=== PATIENT | female | born 1955 | race Hispanic/Latino ===

== ENCOUNTER 2019-11-12 15:33 | Emergency (ER) | payer SELFPAY ==
[~2019-11-12 15:33] MED LIST: Sodium Chloride 0.9% 1,000 ML BAG ONE; Sodium Chloride 0.9% 100 ML BAG ONE
[2019-11-12 15:54] LABS: #Basophils 0.1 thou/uL (0.0-0.2); #Eosinphils 0.2 thou/uL (0.0-0.7); #Lymphocytes 3.1 thou/uL (1.20-3.40); #Monocytes 0.8 thou/uL (0.11-0.59); #Neutrophils 6.1 thou/uL (1.40-6.50); %Basophils 0.8 % (0.0-1.0); %Eosinophils 2.1 % (0.0-10.0); %Lymphocytes 30.4 % (21.0-51.0); %Monocytes 8.1 % (0.0-10.0); %Neutrophils 58.6 % (42.0-75.0); Hemoglobin 11.9 g/dL (12.0-16.0); Mean Corpuscular HGB CONC 31.1 g/dL (32.0-36.0); Mean Corpuscular Hemoglobin 30.2 pg (27.0-31.0); Mean Corpuscular Volume 97.1 fL (78.0-98.0); Mean Platelet Volume 8.1 fL (7.4-10.4); Platelet Count 303 thou/uL (130-400); RBC Distribution Width 12.3 % (11.5-14.5); Red Blood Cell (RBC) Count 3.95 mill/uL (4.20-5.40); White Blood Cell (WBC) Count 10.3 thou/uL (4.8-10.8)
[2019-11-12 16:13] LABS: ALT (SGPT) 14 U/L (8-55); AST (SGOT) 10 U/L (5-34); Albumin 4.1 g/dL (3.4-4.8); Alkaline Phosphatase 80 U/L (40-110); Anion Gap 19 mmol/L (10-20); BUN (Urea Nitrogen) 27 mg/dL (9.8-20.1); Bilirubin, Total 0.4 mg/dL (0.2-1.2); Calc. Creatinine Clearance 0 mL/min (70-130); Calcium 9.1 mg/dL (7.8-10.44); Carbon Dioxide 24 mmol/L (23-31); Chloride 100 mmol/L (98-107); Estimated GFR-MDRD 42; Globulin 3.7 g/dL (2.4-3.5); Glucose 537 mg/dL (80-115); Potassium 4.5 mmol/L (3.5-5.1); Protein, Total 7.8 g/dL (6.0-8.3); Sodium 138 mmol/L (136-145)
--- NOTE | 2019-11-12 16:42 | CT ---
CT BRAIN WITHOUT CONTRAST: History: Altered mental status. Comparison: None. FINDINGS: There is no acute hemorrhage or infarct. No midline shift of mass effect. Ventricular size and extraa xial CSF spaces are normal. Calvarium is intact. There is chronic white maxillary sinusitis. IMPRESSION: No acute intracranial abnormality. Dr. Cole notified of findings via telephone at 4:34 p.m. It was noted that this was a stroke daiana col at 4:33 p.m. POS: HOME
--- NOTE | 2019-11-12 17:03 | RAD ---
CHEST ONE VIEW: History: Altered mental status. Comparison: None. FINDINGS: Heart size is upper limits of normal. No pulmonary venous congestion. No pneumothorax. No effusion. N o acute osseous abnormality. IMPRESSION: Cardiomegaly and mild pulmonary venous congestion. POS: HOME
[2019-11-12 17:06] LABS: Bilirubin Negative (Negative); Blood, Urine Negative (Negative); Clarity Clear (Clear); Glucose, Urine (Dipstick) 500 mg/dL (Negative); Leukocyte Trace (Negative); Nitrite Negative (Negative); Protein, Urine (Dipstick) Negative (Neg-Trace); Urobilinogen 0.2 mg/dL (Less than 2)
[2019-11-12 17:14] LABS: RBC/HPF 0-3 HPF (0-3)
[2019-11-12 17:15] LABS: Bacteria/HPF Rare-Few HPF (None Seen); Squamous Epithelial 0-3 HPF (0-3)
[2019-11-12] MEDS ORDERED: Insulin Regular 300 UNITS/3 ML VIAL ONE (17:37)
[2019-11-12] MEDS ORDERED: Aspirin Chewable 81 MG TAB ONE (18:51)
[2019-11-12] MEDS ORDERED: Metoprolol Tartrate 50 MG TAB ONE (18:52)
[2019-11-12] MEDS ORDERED: Ondansetron PF 4 MG/2 ML Vial ONE (19:04)
[2019-11-12] MEDS ORDERED: Metoprolol Tartrate 5 MG/5 ML VIAL ONE (20:04)
--- NOTE | 2019-11-12 20:40 | CT ---
CT ANGIOGRAM HEAD WITH CONTRAST CT ANGIOGRAM NECK WITH CONTRAST: History: Altered mental status. Comparison: CT brain same day FINDINGS: CT angiograph of the head and neck performed after the intravenous administration of contrast. 3D andrews dering provided. The lung apices are relatively clear. No cervical adenopathy. Globes are intact. Transverse aorta is unremarkable. Right common carotid artery is patent. Internal carotid artery is patent. The left common carotid artery is patent. The internal carotid artery is pa tent. The right vertebral artery is diminutive. High grade calcific plaque of the intradural right vertebra l artery without significant flow. The left vertebral artery is dominant and basilar flow is only thr ough the left vertebral artery. There appears to be a relatively high grade narrowing of the anterior division of left M2 segment wit h asymmetric decreased flow. Mild narrowing left M1. Remainder of the [place] is without stenosis or aneurysm formation. IMPRESSION: 1. Very small diminutive right extradural vertebral artery from its origin with no flow within the in tradural vertebral artery. The left vertebral artery is dominant with basilar artery flow only to the left vertebral artery. 2. Mild narrowing of the left M1, 50-60% stenosis, with very little flow in the anterior portion of t he left M2 trifurcation. There is, however, some intraluminal contrast where the caliber is decreased . Emergency Department Dr. Cole was notified of findings via telephone at 8:20 p.m. POS: HOME
== END 2019-11-12 20:23 | disposition short-term general hospital (02) ==
LOC: MADERS 15:33
DX: R41.82 Altered mental status, unspecified (principal); G45.9 Transient cerebral ischemic attack, unspecified; E11.65 Type 2 diabetes mellitus with hyperglycemia; I10 Essential (primary) hypertension; E11.9 Type 2 diabetes mellitus without complications; Z79.84 Long term (current) use of oral hypoglycemic drugs; Z79.899 Other long term (current) drug therapy
CPT/HCPCS: 36415; 36416; 70450; 70496; 71045; 80053; 81003; 81015; 84484; 85025; 85610; 93005; 94760; 96361; 96374; 96375; A4353; J1815; J2405; J3490; J7050